=== PATIENT | female | born 1980 | race Caucasian/White ===

== ENCOUNTER 2016-05-10 18:38 | Emergency (ER) | payer SELFPAY ==
[2016-05-10] MEDS ORDERED: NS 0.9% 1000 ML* 1,000 ML IV ONE (21:04)
[2016-05-10 22:25] LABS: Hematocrit 39 % (35-47); Hemoglobin 12.7 g/dl (12.0-16.0); Mean Corpuscular HGB Conc 33 g/dl (31-36); Mean Corpuscular Hemoglobin 27 pg (27-31); Mean Corpuscular Volume 84 fL (80-97); Mean Platelet Volume 8 um3 (7.4-10.4); Red Blood Count 4.69 10^6/ul (4.0-5.4); Red Cell Distribution Width 15 % (10.5-15); White Blood Count 8.7 10^3/ul (3.5-10.8)
--- NOTE | 2016-05-10 22:36 | RAD ---
INDICATION: RIGHT side abdominal pain. Vomiting. Hematuria. COMPARISON: None. TECHNIQUE: Multidetector CT images were obtained from the lung bases to the ischial tuberosities. Evaluation of the viscera is limited without IV contrast. Multiplanar reformation. REPORT: Minimal dependent basilar atelectasis. Post cholecystectomy. Negative for biliary dilatation. Unremarkable liver, pancreas, spleen. Negative for CT abnormality of the upper GI, small bowel, infra cecal appendix, or colon. Physiologic small volume of free fluid in the dependent pelvis. Negative for free air or significant hernias. Normal adrenal glands. Negative for urolithiasis or hydroureteronephrosis. Negative for focal renal lesions. Partially decompressed urinary bladder without abnormality. Unremarkable anteverted uterus and LEFT adnexal region. Mildly enlarged RIGHT ovary approximates the RIGHT dorsal lower uterine segment. Suggestion of a 1.8 cm mildly denser than water RIGHT ovarian lesion most suspicious for a hemorrhagic cyst. Negative for lymphadenopathy. Normal diameter abdominal aorta and iliac arteries. Physiologic distention of the IVC. Negative for suspicious osseous lesions. IMPRESSION: 1. Negative for obstructive uropathy. 2. Normal appendix documented. 3. Small RIGHT ovarian lesion most suspicious for hemorrhagic cyst. Consider pelvic ultrasound for further assessment. 4. Physiologic small volume of free pelvic fluid.
[2016-05-10 22:41] LABS: BUN/Creatinine Ratio 13.2 (8-20); C Reactive Protein 4.69 mg/L (< 5.00); Calcium 9.1 mg/dL (8.6-10.3); EGFR African American 125.2 (>60); EGFR Non-African American 97.4 (>60); Globulin 3.2 g/dL (2-4); Potassium 4.1 mmol/L (3.5-5.0); Total Bilirubin 0.2 mg/dL (0.2-1.0); Total Protein 7.2 g/dL (6.4-8.9)
[2016-05-10 22:47] LABS: Urine Bacteria 1+ (Absent)
[2016-05-10] MEDS ORDERED: Ciprofloxacin 400MG IVPREMIX(* 400 MG/200 ML BAG IVPB ONE (23:08)
[2016-05-10] MEDS ORDERED: Ketorolac INJ* 30 MG/ML 1 ML VIAL IM ONE (23:09)
--- NOTE | 2016-05-10 23:33 | ED ---
Sergio Ramsey Rebecca, scribed for Alessandro Huynh MD on 05/10/16 at 2059 . Abdominal Pain/Female - HPI Summary HPI Summary: Pt is a 35 y/o F who presents to ED c/o abd pain. Pain began gradually multiple weeks ago, has been particularly worse in the last 2 days and has been intermittent since onset. Pain is in the RLQ without radiation, is sharp and ranked 7/10. Sx aggravated by urinating, alleviated by nothing. Took 600 mg Ibuprofen earlier today to treat pain, which did not change sx. Additionally c/ o hematuria, back pain and bloating. Pt was evaluated by [facility] 2 days ago where a CT was performed, revealing no appendicitis and a kidney stone in the kidney. PSHx cholecystectomy. PMHx ovarian cysts (which she originally attributed cysts to). Reports she cannot take Percocet due to a bad reaction in the past. LNMP ended 04/30/2016. - History of Current Complaint Chief Complaint: EDAbdPain Stated Complaint: ABD PAIN Time Seen by Provider: 05/10/16 20:34 Hx Obtained From: Patient Onset/Duration: Gradual Onset, Lasting Weeks, Still Present, Worse Since - 2 days ago Timing: Intermittent Episode Lasting Severity Initially: Moderate Severity Currently: Severe Pain Intensity: 7 Pain Scale Used: 0-10 Numeric Location: Discrete At: RLQ Radiates: No Character: Sharp Aggravating Factor(s): Other: - Urinating Alleviating Factor(s): Nothing Associated Signs and Symptoms: Positive: Back Pain, Urinary Symptoms - Hematuria , Other: - Bloating Allergies/Adverse Reactions: Allergies Allergy/AdvReac Type Severity Reaction Status Date / Time Latex Allergy Intermediate Rash Verified 01/24/13 21:02 PMH/Surg Hx/FS Hx/Imm Hx Endocrine/Hematology History: Denies: Hx Diabetes Cardiovascular History: Denies: Hx Hypertension History: Reports: Other Problems/Disorders - Hx ovarian cysts - Surgical History Surgery Procedure, Year, and Place: CHOLECYSTECTOMY Infectious Disease History: No Infectious Disease History: Denies: Traveled Outside the [place] in Last 30 Days - Family History Known Family History: Positive: Cardiac Disease, Other - BREAST ca - Social History Lives: With Family Alcohol Use: None Substance Use Type: Reports: None Smoking Status (MU): Current Every Day Smoker Review of Systems Positive: Abdominal Pain - RLQ, Other - Bloating Positive: hematuria Positive: Arthralgia - Back pain All Other Systems Reviewed And Are Negative: Yes Physical Exam - Summary Physical Exam Summary: VITAL SIGNS: Reviewed. GENERAL: Patient is a well developed and nourished female who is lying comfortable in the stretcher. Patient is not in any acute respiratory distress. HEAD AND FACE: Normocephalic and atraumatic. EYES: PERRLA, EOMI x 2, No injected conjunctiva. EARS: Hearing grossly intact. Ear canals and tympanic membranes are WNL. MOUTH: Oropharynx within normal limits. NECK: Supple, trachea is midline, no adenopathy, no JVD. CHEST: Symmetric, no tenderness at palpation LUNGS: Clear to auscultation bilaterally. No wheezing or crackles. CVS: RRR,, S1 and S2 present, no murmurs or gallops appreciated. ABDOMEN: Soft, non-tender. No signs of distention. Positive bowel sounds. No rebound no guarding, and no masses palpated. No abdominal bruit or pulsations. EXTREMITIES: FROM in all major joints, no edema, no cyanosis or clubbing. NEURO: Alert and oriented x 3. No acute neurological deficits. Speech is normal. SKIN: Dry and warm Vital Signs On Initial Exam: Initial Vitals Temp Pulse Resp BP Pulse Ox 99 F 94 16 162/105 100 05/10/16 18:39 05/10/16 18:39 05/10/16 18:39 05/10/16 18:39 05/10/16 18:39 Diagnostics - Vital Signs Vital Signs Temp Pulse Resp BP Pulse Ox 05/10/16 18:39 99 F 94 16 162/105 100 - Laboratory Lab Results: Lab Results 05/10/16 05/10/16 05/10/16 Range/Units 20:35 22:05 22:05 WBC 8.7 (3.5-10.8) 10^3/ul RBC 4.69 (4.0-5.4) 10^6/ul Hgb 12.7 (12.0-16.0) g/dl Hct 39 (35-47) % MCV 84 (80-97) fL MCH 27 (27-31) pg MCHC 33 (31-36) g/dl RDW 15 (10.5-15) % Plt Count 258 (150-450) 10^3/ul MPV 8 (7.4-10.4) um3 Neut % (Auto) 64.7 (38-83) % Lymph % (Auto) 28.6 (25-47) % [place] % (Auto) 4.1 (1-9) % Eos % (Auto) 1.9 (0-6) % Baso % (Auto) 0.7 (0-2) % Absolute Neuts (auto) 5.6 (1.5-7.7) 10^3/ul Absolute Lymphs (auto) 2.5 (1.0-4.8) 10^3/ul Absolute Monos (auto) 0.4 (0-0.8) 10^3/ul Absolute Eos (auto) 0.2 (0-0.6) 10^3/ul Absolute Basos (auto) 0.1 (0-0.2) 10^3/ul Absolute Nucleated RBC 0 10^3/ul Nucleated RBC % 0 Sodium 135 (133-145) mmol/L Potassium 4.1 (3.5-5.0) mmol/L Chloride 105 (101-111) mmol/L Carbon Dioxide 25 (22-32) mmol/L Anion Gap 5 (2-11) mmol/L BUN 9 (6-24) mg/dL Creatinine 0.68 (0.51-0.95) mg/dL Est GFR ( Amer) 125.2 (>60) Est GFR (Non-Af Amer) 97.4 (>60) BUN/Creatinine Ratio 13.2 (8-20) Glucose 82 (70-100) mg/dL Calcium 9.1 (8.6-10.3) mg/dL Total Bilirubin 0.20 (0.2-1.0) mg/dL AST 12 L (13-39) U/L ALT 12 (7-52) U/L Alkaline Phosphatase 52 (34-104) U/L C-Reactive Protein 4.69 (< 5.00) mg/L Total Protein 7.2 (6.4-8.9) g/dL Albumin 4.0 (3.2-5.2) g/dL Globulin 3.2 (2-4) g/dL Albumin/Globulin Ratio 1.3 (1-3) Lipase 14 (11.0-82.0) U/L Urine Color [place] Urine Appearance Clear Urine pH TNP Ur Specific [place] 1.021 (1.010-1.030) Urine Protein TNP Urine Ketones TNP Urine Blood TNP Urine Nitrate TNP Urine Bilirubin TNP Urine Urobilinogen TNP Ur Leukocyte Esterase TNP Urinalysis Comment Urine Glucose TNP Urine Ascorbic Acid TNP Result Diagrams: 05/10/16 22:05 05/10/16 22:05 Lab Statement: Any lab studies that have been ordered have been reviewed, and results considered in the medical decision making process. - CT CT Abd/Pel CT Interpretation Completed By: Radiologist - 1. Negative for obstructive uropathy. 2. Normal appendix documented. 3. Small RIGHT ovarian lesion most suspicious for hemorrhagic cyst. Consider pelvic ultrasound for further assessment. 4. Physiologic small volume of free pelvic fluid. Re-Evaluation - Re-Evaluation First Eval Re-Evaluation Time: 23:16 Change: Improved Comment: Pt is feeling significantly better. Abdominal Pain Fem Course/Dx - Course Course Of Treatment: 35 y/o F presents to ED with a CC of R flank pain associated with dysuria and hematuria. Pt reports she has been having sx for last couple days. Seen in [facility] and she thinks they saw kidney stone on XR. Test results within normal limits except for urinalysis which has hematuria and positive leukocytes and RBCs. The CT shows no kidney stones. The rest of the CT results are above. I believe the sx are secondary to UTI v. cystitis therefore pt was given IV fluids, ciprofloxacin and toradol for the pain. After these meds, sx improved, the pt will be d/c to home with prescription of Ciprofloxacin and follow up with PCP and urology. I discussed all my findings and test results with the patient. Patient understands and agrees. Patient was instructed to return to the emergency room immediately if any of the symptoms return or worsens. Patient understands and agrees. Plan of care was discussed with the patient and patient understands and agrees with the plan of care. All questions were answered at patient satisfaction. There were no further complaints or concerns. Patient was instructed to follow up with primary care physician within 3 to 5 days. Patient is hemodynamically stable. Patient is alert and oriented x 3. No acute neurological deficits. - Diagnoses Provider Diagnoses: UTI (urinary tract infection), Cystitis, Hematuria Discharge - Discharge Plan Condition: Stable Disposition: HOME Prescriptions: Ciprofloxacin TAB* [Cipro Tab*] 500 mg PO BID #6 tab Patient Education Materials: Urinary Tract Infection in Women (ED), Hematuria ( ED) Referrals: Shmuel Calvo MD [Primary Care Provider] - 3 Days (Follow up with your primary care physician within the next 3 days. ) Wagner Rojas MD [Medical Doctor] - 3 Days (Follow up with Dr. Rojas, urologist, within the next 3 days. ) Additional Instructions: Return to ED for any returning or worsening symptoms. The documentation as recorded by the Sergio morrow Rebecca accurately reflects the service I personally performed and the decisions made by , Alessandro Huynh MD.
[2016-05-11 02:50] VITALS: BP 133/84
== END 2016-05-11 00:10 | disposition home or self-care (01) ==
LOC: ED 18:38
DX: N39.0 Urinary tract infection, site not specified (principal); N30.90 Cystitis, unspecified without hematuria; R31.9 Hematuria, unspecified; R10.31 Right lower quadrant pain; F17.200 Nicotine dependence, unspecified, uncomplicated; M54.9 Dorsalgia, unspecified
CPT/HCPCS: 36415; 74176; 80053; 81003; 81015; 83690; 85025; 86140; 87086; 96365; 96375; 99284; J0744; J1885